=== PATIENT | female | born 1960 | race Two or more races ===

== ENCOUNTER 2017-03-07 18:53 | Emergency (ER) | payer OTHER ==
[2017-03-07 18:59] VITALS: BP 184/79; PULSE 73; TEMP 98.6; BMI 27.9
--- NOTE | 2017-03-07 19:40 | PDOC ---
History of Present Illness - General Chief Complaint: Pain Stated Complaint: SWELLING AND PAIN TO LEG Time Seen by Provider: 03/07/17 19:05 History Source: Patient Exam Limitations: No Limitations - History of Present Illness Initial Comments: 03/07/17 19:33 CHIEF COMPLAINT:left plantar heel pain HISTORY OF PRESENT ILLNESS: Patient is a 56-year-old female with history of high cholesterol, hypertension, patient states last week she was away and started to have left foot pain, pain localized to heel and arch. Patient reports change in her diet. Denies any trauma, denies wearing new shoes. Denies walking barefoot. Occurred: reports: last week Severity: Yes: moderate Lower Extremity Pain Location: left: heel Method of Injury: Yes: unknown Modifying Factors: improves with: None Lower Ext. Injury Location - Specific Injury Location Foot: left foot pain Extremity Pain Location - Extremity Pain Location Extremity Pain Locations: left: heel Past History - Past Medical History Allergies/Adverse Reactions: Allergies Allergy/AdvReac Type Severity Reaction Status Date / Time No Known Allergies Allergy Verified 03/07/17 18:59 HTN: Yes Hypercholesterolemia: Yes Thyroid Disease: Yes - Psycho/Social/Smoking Cessation Hx Anxiety: No Suicidal Ideation: No Smoking History: Never smoked Hx Alcohol Use: No Drug/Substance Use Hx: No Substance Use Type: None Review of Systems - Review of Systems Musculoskeletal: Yes: Joint Pain (base of toes, heel and arch. Pes planus). No : Gout Integumentary: No: Bruising, Erythema Neurological: No: Symptoms reported Hematologic/Lymphatic: No: Symptoms Reported All Other Systems: Reviewed and Negative *Physical Exam - Vital Signs Last Vital Signs Temp Pulse Resp BP Pulse Ox 98.6 F 73 20 184/79 97 03/07/17 18:56 03/07/17 18:56 03/07/17 18:56 03/07/17 18:56 03/07/17 18:56 - Physical Exam General Appearance: Yes: Appropriately Dressed. No: Apparent Distress Respiratory/Chest: positive: Lungs Clear, Normal Breath Sounds Cardiovascular: positive: Regular Rhythm, Regular Rate Musculoskeletal: positive: Normal Inspection Extremity: positive: Normal Capillary Refill, Normal Inspection, Normal Range of Motion. negative: Pedal Edema, Swelling, Erythema, Inflammation Integumentary: positive: Normal Color, Dry. negative: Erythema, Swelling, Ecchymosis, Bruising Neurologic: positive: Alert, Normal Mood/Affect Deep Tendon Reflexes: Ankle (L): 3+, Ankle (R): 3+ ED Treatment Course - RADIOLOGY Radiology Studies Ordered: Category Date Time Status FOOT-LEFT [RAD] Stat Radiology 03/07/17 19:21 Ordered Medical Decision Making - Medical Decision Making 03/07/17 19:48 A/P: Patient with left heel and foot pain. Highly suspicious for plantar fasciitis. Will perform foot x-ray as well as uric acid to rule out gout based upon patient's recent history of travel and change in diet. I am signing this patient out to my colleague: Nurse practitioner Reji In brief, this patient is being seen in the ED for a chief complaint of: Left foot pain I have completed the initial assessment interview note and have ordered: X-ray and uric acid I have reviewed the following results: All pending Plan for disposition is as follows: Pending
--- NOTE | 2017-03-07 20:24 | PDOC ---
*Physical Exam - Vital Signs Last Vital Signs Temp Pulse Resp BP Pulse Ox 98.6 F 73 20 184/79 97 03/07/17 18:56 03/07/17 18:56 03/07/17 18:56 03/07/17 18:56 03/07/17 18:56 ED Treatment Course - ADDITIONAL ORDERS Additional order review: Laboratory Results 03/07/17 19:30 Uric Acid 5.5 Medical Decision Making - Medical Decision Making 03/07/17 20:20 Pt received in sign out from PIPE PRODUCTION WORKER Andolino with complaints of foot pain and awaiting a uric acid level. As per PIPE PRODUCTION WORKER patient had a negative x-ray and was told this may be plantar fasciitis. Patient will be discharged home with recommendations to take Tylenol where proper fitting shoes with proper arch Laboratory Tests 03/07/17 19:30 Uric Acid 5.5 *DC/Admit/Observation/Transfer Diagnosis at time of Disposition: Plantar fasciitis - Discharge Dispostion Disposition: HOME Condition at time of disposition: Good - Patient Instructions Printed Discharge Instructions: DI for Plantar Fasciitis Additional Instructions: Please read over instructions regards to plantar fasciitis and where proper fitting shoes. Please continue to take your medications and may take tylenol for pain
== END 2017-03-07 20:38 | disposition home or self-care (01) ==
LOC: JERFT 18:53
DX: M72.2 Plantar fascial fibromatosis (principal); I10 Essential (primary) hypertension; E78.00 Pure hypercholesterolemia, unspecified; E07.89 Other specified disorders of thyroid
CPT/HCPCS: 36415; 73630-TC-LT; 84550; 99281-25

== ENCOUNTER 2023-07-19 09:12 | Emergency (ER) | payer OTHER ==
[2023-07-19 09:27] VITALS: BP 152/88; PULSE 70; RESP 18; TEMP 98.3; BMI 26.0
[2023-07-19] MEDS ORDERED: KETOROLAC TROMETHAMINE 30 MG/1 ML VIAL IM ONE (11:21)
[2023-07-19] MEDS ORDERED: LIDOCAINE 5% TOPICAL PATCH TP ONE (11:23)
[2023-07-19] MEDS ORDERED: LIDOCAINE 4% PATCH TP ONE ×2 (11:31→11:46)
[2023-07-19] MEDS ORDERED: KETOROLAC TROMETHAMINE 30 MG/1 ML VIAL ONE (11:31)
[2023-07-19] MEDS ORDERED: LIDOCAINE PATCH REMOVAL MC ONE ×2 (22:00)
== END 2023-07-19 12:58 | disposition home or self-care (01) ==
LOC: JER 09:12
PROC: 3E0233Z Introduction of Anti-inflammatory into Muscle, Percutaneous Approach (ICD-10-PCS; principal; 2023-07-19)
DX: M25.551 Pain in right hip (principal); M79.645 Pain in left finger(s); M54.41 Lumbago with sciatica, right side; M43.16 Spondylolisthesis, lumbar region; M16.11 Unilateral primary osteoarthritis, right hip
CPT/HCPCS: 72100-TC-FY; 73130-TC-LT-FY; 73502-TC-RT-FY; 99284-25

== ENCOUNTER 2023-11-09 19:39 | Emergency (ER) | payer OTHER ==
[2023-11-09 19:46] VITALS: BP 168/88; PULSE 69; RESP 20; TEMP 97.6; BMI 25.4
[2023-11-09] MEDS ORDERED: IBUPROFEN 600 MG TABLET (FP) PO ONE ×2 (21:30→21:31)
[2023-11-09] MEDS: IBUPROFEN 600 MG TABLET (FP) PO ONE (21:32)
== END 2023-11-09 21:55 | disposition home or self-care (01) ==
LOC: JERFT 19:39
DX: S93.401A Sprain of unspecified ligament of right ankle, initial encounter (principal); M25.561 Pain in right knee; X50.1XXA Overexertion from prolonged static or awkward postures, initial encounter
CPT/HCPCS: 73610-TC-RT-FY; 73630-TC-RT-FY; 99283-25